=== PATIENT | female | born 1970 | race Caucasian/White ===

== ENCOUNTER 2017-05-23 17:46 | Observation (INO) ==
[2017-05-23] MEDS ORDERED: Aspirin 81 MG TAB.CHEW PO ONE (18:14)
[2017-05-23] MEDS ORDERED: cloNIDine HCl 0.1 MG TABLET PO ONE (18:16)
[2017-05-23] MEDS ORDERED: *HR* Labetalol 20 MG/4 ML SYRINGE IVP ONE (18:16)
[2017-05-23] MEDS ORDERED: 0.9 % Sodium Chloride 1,000 ML IVC SCH (18:30)
[2017-05-23 18:36] LABS: Basophils # 0.1 K/mcL (0.0-0.2); Basophils % 0.8 %; Eosinophils # 0.4 K/mcL (0.0-0.6); Eosinophils % 3.6 %; Hematocrit 41.2 % (35.3-44.9); Hemoglobin 14.8 g/dL (11.5-15.4); Immature Granulocytes % 0.5 % (0-4); Lymphocytes # 3.1 K/mcL (0.6-4.6); Lymphocytes % 29.4 %; Mean Corpuscular HGB Conc 35.9 g/dL (31.6-35.5); Mean Corpuscular Hemoglobin 31.8 pg (28.0-33.3); Mean Corpuscular Volume 88.4 fL (83.0-100.0); Mean Platelet Volume 8.3 fL (9.4-12.4); Monocytes # 0.7 K/mcL (0.0-1.3); Monocytes % 6.6 %; Neutrophils # 6.2 K/mcL (1.6-8.9); Platelet Count 304 K/mcL (140-400); Red Blood Count 4.66 M/mcL (3.82-4.97); Red Cell Distribution Width 12.6 % (11.5-14.5); Segmented Neutrophils % 59.1 %
[2017-05-23 18:42] LABS: INR 0.9; Prothrombin Time 10.1 Seconds (9.4-12.1)
[2017-05-23 18:45] LABS: Activated Partial Thrombo Time 29.8 Seconds (26.0-36.0)
[2017-05-23 18:51] LABS: BUN/Creatinine Ratio 12 (6-26); Blood Urea Nitrogen 9 mg/dL (7-20); Calcium 9.1 mg/dL (8.6-10.8); Carbon Dioxide 22 mEq/L (19-29); Chloride 101 mEq/L (98-109); Glucose 153 mg/dL (70-99); Osmolality,Calculated 286 (280-300); Potassium 3.4 mEq/L (3.5-4.5); Sodium 137 mEq/L (136-145); eGFR For African Americans > 60 (> 60); eGFR For Non-African Americans > 60 (> 60)
--- NOTE | 2017-05-23 18:52 | Emergency Department Note ---
Disposition Clinical Impression: Hypertensive emergency Chest pain Qualifiers: Chest pain type: precordial pain Qualified Code(s): R07.2 - Precordial pain Disposition: Admitted As Inpatient Condition: Good Referrals: Leonarda Shah CNP [Primary Care Provider] - Forms: ED Satisfaction Letter Chest Pain HPI - General Chief Complaint: ED Chest Pain Stated Complaint: chest heaviness Time Seen by Provider: 05/23/17 18:13 Source: patient Mode of arrival: private vehicle Limitations: no limitations Vital Signs Reviewed: Yes Nursing Notes Reviewed: Yes - History of Present Illness HPI Narrative: Patient reports she has been having increased blood pressure with which she has been feeling chest heaviness "all day". This is no surface and diaphoresis without nausea or shortness of breath. She denies pain to her jaw, back or arms. She states she has been under more stress. She has had history of hypertension and has been taking her normal medicines. She has been having intermittent headaches for 2-3 days and states that she has had frequent headaches for a long time. She denies any headache at this time. She states her chest heaviness has abated at this time. She denies any lower extremity swelling, immobilization or injury. She denies leg pain or history of DVT or PE. She denies any change from her routine medicines. She states she does drink a lot of caffeine. She denies history of previous heart disease but does have history of elevated cholesterol, diabetes, hypertension and obesity. Her father of a heart attack at age 80. She did have a brain aneurysm with repair at [place] in 2010. She states she is known to have another small aneurysm in her head and, she states, in her neck. Pt complaint: chest pain Onset (ago): hour(s) Duration: constant Onset: during rest Pain Location: substernal Severity: moderate Severity scale (1-10): 5 Quality: tightness, heaviness Pain Radiation: none Improves with: nothing Worsens with: nothing Associated symptoms: Reports: diaphoresis. Denies: nausea, vomiting, dyspnea, syncope, palpitations, fever, cough, leg swelling Treatments prior to arrival chest pain: none - Related Data Home Medications Medication Instructions Recorded Confirmed Levothyroxine [Synthroid] 100 mcg PO DAILY 05/23/17 05/23/17 Losartan/HCTZ [Hyzaar 50-12.5 1 each PO DAILY 05/23/17 05/23/17 Tablet] amLODIPine [Norvasc] 10 mg PO DAILY 05/23/17 05/23/17 cloNIDine HCl [CloNIDine HCl] 0.2 mg PO BID 05/23/17 05/23/17 glipiZIDE [Glucotrol] 5 mg PO DAILY 05/23/17 05/23/17 metFORMIN [Glucophage] 1,000 mg PO BIDWM 05/23/17 05/23/17 Allergies Allergy/AdvReac Type Severity Reaction Status Date / Time No Known Allergies Allergy Verified 05/23/17 17:47 All systems ED: reviewed and negative except as stated. Chest Pain PMH - Past Medical History Medical history: Reports: diabetes, hyperlipidemia, hypertension, thyroid disease Surgical history: Reports: cholecystectomy, other (Cerebral aneurysm coiling) Psychiatric history: Reports: no psych history - Social History Smoking Status: Current every day smoker Alcohol use: Reports: none Drug use: Reports: none Physical Exam - General Limitations: no limitations General appearance: alert, in no apparent distress - Head Head exam: atraumatic, normocephalic, normal inspection - Eye Eye exam: Present: normal appearance, PERRL, EOMI - ENT ENT exam: normal exam, normal oropharynx, mucous membranes moist - Neck Neck exam: Present: normal inspection, full ROM, trachea midline - Chest Chest inspection: Present: normal inspection, symmetric chest wall rise - Respiratory Respiratory exam: Present: normal lung sounds bilaterally. Absent: respiratory distress, wheezes, prolonged expiratory phase - Cardiovascular Cardiovascular exam: Present: regular rate, normal rhythm, normal heart sounds - Abdominal Exam Abdominal exam: Present: soft, Non-Tender, normal bowel sounds. Absent: tenderness, distention, guarding, rebound, rigidity - Extremities Exam Extremities exam: Present: normal inspection, full ROM, normal capillary refill. Absent: tenderness, pedal edema, calf tenderness - Expanded Lower Extremity Exam Neurovascular/Tendon exam: Present: normal capillary refill. Absent: motor deficit, sensory deficit, tendon deficit Gait: observed and normal - Back Exam Back exam: Present: normal inspection, full ROM. Absent: tenderness, CVA tenderness (R), CVA tenderness (L) - Neurological Exam Neurological exam: Present: alert, oriented X3, CN II-XII intact, normal gait. Absent: motor sensory deficit - Psychiatric Psychiatric exam: Present: normal affect, normal mood - Skin Skin exam: Present: warm, dry, intact, normal color. Absent: rash, diaphoresis , pallor Course Course Narrative: 1909: The patient's blood pressure is down to 149/96, heart rate 78 and she is saturating 98%. She states she feels entirely well at this time without headache, chest pain or shortness of breath. He did be prudent to have her in for observation and serial troponins. For this purpose I have contacted Dr. Alejandro how the hospitalist service. I am awaiting his call back at this time. Vital Signs Temperature 98.1 F 05/23/17 17:48 Pulse Rate 97 05/23/17 17:48 Respiratory Rate 18 05/23/17 17:48 Blood Pressure 211/139 05/23/17 17:48 O2 Sat by Pulse Oximetry 99 05/23/17 17:48 Temperature 98.1 F 05/23/17 18:14 Pulse Rate 78 05/23/17 18:14 Respiratory Rate 16 05/23/17 18:14 Blood Pressure 149/96 05/23/17 18:14 O2 Sat by Pulse Oximetry 97 05/23/17 18:14 Oxygen Delivery Oxygen Delivery Room Air Chest Pain - Differential Diagnosis Likely: atypical chest pain, chest pain - Lab Data Lab results reviewed: Yes I reviewed the patient's lab results. Result diagrams: 05/23/17 18:27 05/23/17 18:27 Lab Results 05/23/17 05/23/17 05/23/17 Range/Units 18:27 18:27 18:27 WBC 10.5 (4.3-11.1) K/mcL RBC 4.66 (3.82-4.97) M/mcL Hgb 14.8 (11.5-15.4) g/dL Hct 41.2 (35.3-44.9) % MCV 88.4 (83.0-100.0) fL MCH 31.8 (28.0-33.3) pg MCHC 35.9 H (31.6-35.5) g/dL RDW 12.6 (11.5-14.5) % Plt Count 304 (140-400) K/mcL MPV 8.3 L (9.4-12.4) fL Immature Gran % 0.5 (0-4) % Seg Neutrophils % 59.1 % Lymphocytes % 29.4 % Monocytes % 6.6 % Eosinophils % 3.6 % Basophils % 0.8 % Neutrophils # 6.2 (1.6-8.9) K/mcL Lymphocytes # 3.1 (0.6-4.6) K/mcL Monocytes # 0.7 (0.0-1.3) K/mcL Eosinophils # 0.4 (0.0-0.6) K/mcL Basophils # 0.1 (0.0-0.2) K/mcL PT 10.1 (9.4-12.1) Seconds INR 0.9 APTT 29.8 (26.0-36.0) Seconds Sodium 137 (136-145) mEq/L Potassium 3.4 L (3.5-4.5) mEq/L Chloride 101 (98-109) mEq/L Carbon Dioxide 22 (19-29) mEq/L BUN 9 (7-20) mg/dL Creatinine 0.77 (0.57-1.11) mg/dL Est GFR ( Amer) > 60 (> 60) Est GFR (Non-Af Amer) > 60 (> 60) BUN/Creatinine Ratio 12 (6-26) Glucose 153 H (70-99) mg/dL Calculated Osmolality 286 (280-300) Calcium 9.1 (8.6-10.8) mg/dL Troponin I (0-0.03) ng/mL 05/23/17 Range/Units 18:27 WBC (4.3-11.1) K/mcL RBC (3.82-4.97) M/mcL Hgb (11.5-15.4) g/dL Hct (35.3-44.9) % MCV (83.0-100.0) fL MCH (28.0-33.3) pg MCHC (31.6-35.5) g/dL RDW (11.5-14.5) % Plt Count (140-400) K/mcL MPV (9.4-12.4) fL Immature Gran % (0-4) % Seg Neutrophils % % Lymphocytes % % Monocytes % % Eosinophils % % Basophils % % Neutrophils # (1.6-8.9) K/mcL Lymphocytes # (0.6-4.6) K/mcL Monocytes # (0.0-1.3) K/mcL Eosinophils # (0.0-0.6) K/mcL Basophils # (0.0-0.2) K/mcL PT (9.4-12.1) Seconds INR APTT (26.0-36.0) Seconds Sodium (136-145) mEq/L Potassium (3.5-4.5) mEq/L Chloride (98-109) mEq/L Carbon Dioxide (19-29) mEq/L BUN (7-20) mg/dL Creatinine (0.57-1.11) mg/dL Est GFR ( Amer) (> 60) Est GFR (Non-Af Amer) (> 60) BUN/Creatinine Ratio (6-26) Glucose (70-99) mg/dL Calculated Osmolality (280-300) Calcium (8.6-10.8) mg/dL Troponin I 0.00 (0-0.03) ng/mL - Radiology Data Radiology results reviewed: Yes I reviewed the patient's radiology results. Impressions Chest X-Ray 05/23/17 18:14 IMPRESSION: No focal airspace disease identified. Mild cardiomegaly. D/ /23/2017 18:47:40 Tom Belcher MD / angel Interpreting Provider: Tom Belcher MD Head CT 05/23/17 18:15 IMPRESSION: 1. No acute intracranial abnormality. 2. 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 3. 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 4. Scattered foci of subcortical and periventricular hypoattenuation are favored to represent either chronic small vessel ischemic white matter disease or less likely demyelinating disease. 5. Bilateral mastoid disease. D/ : / 05/23/2017 18:54:20 Altaf Rodriguez MD / angel Interpreting Provider: Altaf Rodriguez MD - EKG Data EKG attestation: Yes I reviewed and interpreted this EKG. EKG shows normal: sinus rhythm, axis, intervals, QRS complexes, ST-T waves Rate: normal (89) Voltage: c/w LVH Interpretation: nonspecific ST-T wave changes Heart Score - Score History: Moderately Suspicious EKG: Non Specific repolarisation Disturbance Age: 45-65 Risk Factors: Equal/Greater than 3 risk factor or history of atherosclerotic disease Critical Care Time Critical Care Time: Yes Total Critical Care Time: 45 Attestation: As this patient did present with signs and symptoms of potential life- threatening illness requiring my urgent intervention, total critical care time in this patient's care has been 45 minutes, not withstanding separately reportable procedures.
[2017-05-23] MEDS ORDERED: Acetaminophen 325 MG TABLET PO PRN (20:43)
[2017-05-23] MEDS ORDERED: Ondansetron 4 MG/2 ML VIAL IVP PRN (20:43)
[2017-05-23] MEDS ORDERED: MOM Conc 10 ML UD.LIQ PO PRN (20:43)
[2017-05-23] MEDS ORDERED: *HR* Labetalol 20 MG/4 ML SYRINGE IVP PRN (20:43)
[2017-05-23] MEDS ORDERED: Naloxone 0.4 MG/ML INJ IVP PRN (20:43)
[2017-05-23] MEDS: cloNIDine HCl 0.1 MG TABLET PO SCH (21:50)
[2017-05-23] MEDS: 0.9 % Sodium Chloride 1,000 ML IVC SCH (21:52)
[2017-05-24] MEDS: cloNIDine HCl 0.1 MG TABLET PO SCH (07:48)
[2017-05-24] MEDS ORDERED: *HR* Metformin 500 MG TABLET PO SCH (08:00)
[2017-05-24] MEDS: 0.9 % Sodium Chloride 1,000 ML IVC SCH (08:56)
[2017-05-24] MEDS ORDERED: *HR* GlipiZIDE 5 MG TABLET PO SCH (09:00)
[2017-05-24] MEDS ORDERED: Losartan/HCTZ 50-12.5 TABLET PO SCH (09:00)
[2017-05-24] MEDS ORDERED: amLODIPine 5 MG TABLET PO SCH (09:00)
[2017-05-24 10:57] VITALS: BP 167/83
--- NOTE | 2017-05-24 11:45 | Internal Med History&Physical ---
Date of Encounter: 05/24/17 Time of Encounter: 11:10 Assessment and Plan (1) Hypertensive emergency Current visit: Yes Status: Acute She was given additional medication in emergency room to lower blood pressure. Further adjustments will be done as needed. (2) Chest pain Current visit: Yes Status: Resolved Now resolved. Repeat cardiac enzymes were ordered through emergency room. Qualifiers: Chest pain type: unspecified Qualified Code(s): R07.9 - Chest pain, unspecified Internal Medicine - H&P: HPI Chief complaint: Chest heaviness and hypertension Admitted From: Home Plans for Post Hospital Care: Home History of present illness: Ms. Agudelo is a 46 year old female who came to emergency room stating she had not felt well all day. She had a sensation of chest pressure. She was found to have uncontrolled hypertension. She admits she had missed several doses of her blood pressure medicines over the past few days because she puts her pill bottles in her purse and forgets to take the medication. She was admitted to [facility] floor for ongoing care needs. She states the chest pressure has resolved and she feels back to her baseline now. She denies MA hypertension heart failure angina DVT or pulmonary embolus. She does not check her blood pressures at home. Past Med Surg Social Fam HX - Past Medical History Medical history: diabetes, hyperlipidemia, hypertension, thyroid disease, other Psychiatric history: no psych history - Past Surgical History Surgical History: cholecystectomy, other - Social History Smoking Status: Current every day smoker Packs per day: 1.5 Smokeless Tobacco Status: No Alcohol use: none Drug use: none - Family History Mother Living Status: Age at : 75 Hx Family Cardiac Disorders: Yes (Hypertension) Hx Family Endocrine Disorder: Yes (Diabetes) Hx Family Medical Disorders: Yes (Anxiety) Father Living Status: Age at : 80 Cause of : MA Hx Family Cardiac Disorders: Yes Hx Family Cancer: Yes Internal Medicine - H&P: Meds Levothyroxine [Synthroid] 100 mcg PO DAILY 05/23/17 [History] Losartan/Hydrochlorothiazide [Hyzaar 100-25 Tablet] 1 each PO DAILY 05/23/17 [ History] Meloxicam 15 mg PO DAILY 05/23/17 [History] amLODIPine [Norvasc] 10 mg PO DAILY 05/23/17 [History] cloNIDine HCl [CloNIDine HCl] 0.2 mg PO BID 05/23/17 [History] glipiZIDE [Glucotrol] 5 mg PO DAILY 05/23/17 [History] metFORMIN [Glucophage] 1,000 mg PO BIDWM 05/23/17 [History] Allergies No Known Allergies Allergy (Verified 05/23/17 17:47) All Systems PM: A 10-system review of systems was performed and is negative for pertinent findings except as documented above in the HPI. Review of systems: Gen.: She states her weight has increased approximately 20 pounds the past year to present weight of 250 Cardiovascular: As per history of present illness Respiratory: She has smoked since age 13 up to 4 packs per day. She does not use home oxygen and denies chronic lung disease GI: She has had cholecystectomy but denies disorders of her liver or exceeding pancreas : She denies hematuria dysuria or kidney stones Neurologic: She had aortic aneurysms clipped in the past. She denies strokes or seizures Endocrine: She was diagnosed with DM 2 approximately 2009. She does not follow a diabetic diet and does not check her sugar at home regularly. She has hypothyroidism and hyperlipidemia Hematology/oncology: She denies blood disorders cancers or anemia Psychiatric: She has feelings of anxiety and depression but does not take medication regularly Musk skeletal: She denies arthritis gout or other bone joint or muscle disorders. - Constitutional Vitals: Temp Pulse Resp BP Pulse Ox 98.9 F 67 18 167/83 98 05/24/17 10:00 05/24/17 10:00 05/24/17 10:00 05/24/17 10:00 05/24/17 10:00 Exam: Gen.: She is well-developed overweight female lying in bed who appears in no acute distress at present time HEENT: Head is atraumatic and normocephalic. Eyes: EOMI. There is no scleral icterus. Mouth: Mucosa is moist. Neck: Supple and nontender. There is no thyromegaly or adenopathy noted. Heart: Regular without murmurs gallops or ectopics Lungs: No wheezes or crackles are heard. Abdomen: Soft and nontender. No masses or guarding are noted. Extremities: There is no cyanosis edema or clubbing noted. Dorsalis pedis and posterior tibial pulses are 1-2/2 bilaterally. Neurologic: Mental status: She is talkative and a good historian. Cranial nerves: Smile is symmetric. Forehead wrinkles bilaterally. Tongue protrudes midline. EOMI. Motor: There is no pronator drift. Cerebellar: To nose is intact bilaterally. Skin: Warm and dry Internal Med - H&P Results - Labs CBC & Chem 7: 05/23/17 18:27 05/23/17 18:27 Labs: Cardiac Enzymes 05/24/17 Range/Units 06:28 Troponin I 0.00 (0-0.03) ng/mL
--- NOTE | 2017-05-24 11:53 | Discharge Summary ---
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 Qualified Code(s): E11.9 - Type 2 diabetes mellitus without complications (4) Hypokalemia Priority: Secondary Status: Acute - Discharge Medications Prescriptions: cloNIDine HCl [Clonidine HCl] 0.2 mg PO Q8H #90 tab Potassium Chloride 10 meq PO DAILY #30 tab.er.prt Home Medications: Levothyroxine [Synthroid] 100 mcg PO DAILY 05/23/17 [History] Losartan/Hydrochlorothiazide [Hyzaar 100-25 Tablet] 1 each PO DAILY 05/23/17 [ History] amLODIPine [Norvasc] 10 mg PO DAILY 05/23/17 [History] glipiZIDE [Glucotrol] 5 mg PO DAILY 05/23/17 [History] metFORMIN [Glucophage] 1,000 mg PO BIDWM 05/23/17 [History] Potassium Chloride 10 meq PO DAILY #30 tab.er.prt 05/24/17 [Rx] cloNIDine HCl [Clonidine HCl] 0.2 mg PO Q8H #90 tab 05/24/17 [Rx] Allergies/Adverse Reactions: Allergies No Known Allergies Allergy (Verified 05/23/17 17:47) Date of admission: 05/23/17 19:48 Primary care physician: Leonarda Shah CNP - Patient Status Disposition: Home, Self-Care Condition: Good Functional capacity at discharge: independent ambulation Overall status at discharge: patient is progressing back to baseline - Discharge Instructions Follow Up With: Leonarda Shah CNP [Primary Care Provider] - 1 week - Diet and Activity Activity: resume usual activities as tolerated Diet: diabetic diet Hospital course: Ms. Agudelo is a 46 year old female who came to emergency room stating she had not felt well all day. She had a sensation of chest pressure. She was found to have uncontrolled hypertension. She admits she had missed several doses of her blood pressure medicines over the past few days because she puts her pill bottles in her purse and forgets to take the medication. She was admitted to [facility] for ongoing care needs. Initial orders were written by the emergency room physician. I saw her on May 24 and performed the history and physical. She had increase in dose of her clonidine and her blood pressure returned to a safe range. Her chest pressure resolved. Repeat cardiac enzymes showed no evidence of myocardial damage. When I saw her May 24 she felt stable for discharge home. I counseled her strongly to use her blood pressure medication in a conspicuous place her she would not forget to take the medication. Supplemental potassium will be prescribed at discharge and her PCP can monitor labs. A magnesium level should also be checked because of diuretic use. I encouraged her strongly to discontinue smoking and follow diabetic diet as well as faithfully take her medication as prescribed. She will follow with her PCP within one week. - Time Spent with Patient Total time spent providing and/or coordinating discharge services: - Constitutional Vitals: Temp Pulse Resp BP Pulse Ox 98.9 F 67 18 167/83 98 05/24/17 10:05/24/17 10:05/24/17 10:00 05/24/17 10:05/24/17 10:00
--- NOTE | 2017-05-25 06:52 | Electrocardiograph Report ---
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
== END 2017-05-24 12:15 | disposition home or self-care (01) ==
LOC: EMEROOPIK 17:46 → INPPIK 17:46
PROVIDERS: ADMIT Internal Medicine; ATTEND Internal Medicine